=== PATIENT | female | born 1985 | race Caucasian/White ===

== ENCOUNTER 2022-03-04 09:48 | Day surgery (SDC) | payer OTHER ==
[2022-03-04 09:36] VITALS: BMI 36.7
[2022-03-04] MEDS ORDERED: Lidocaine 1% MPF 2 ML VIAL ONE (10:06)
[2022-03-04] MEDS ORDERED: CeleCOXIB 100 MG CAP ONE (10:07)
[2022-03-04] MEDS ORDERED: Fentanyl 100 MCG/2 ML VIAL ONE (12:23)
[2022-03-04] MEDS ORDERED: PROPOFOL 20 ML ONE (12:23)
[2022-03-04] MEDS ORDERED: Dexamethasone 20 MG/5 ML VIAL ONE (12:24)
[2022-03-04] MEDS ORDERED: Midazolam HCl 2 mg/2 ml Vial ONE (12:24)
[2022-03-04] MEDS ORDERED: Ondansetron PF 4 MG/2 ML Vial ONE (12:24)
[2022-03-04] MEDS ORDERED: Lidocaine 1% PF 5 ML VIAL ONE (12:24)
[2022-03-04] MEDS ORDERED: Ketorolac Tromethamine 30 MG/ML VIAL ONE (12:24)
[2022-03-04] MEDS ORDERED: Glycopyrrolate 0.2 MG/ML 5 ML SYRINGE ONE (12:25)
[2022-03-04] MEDS ORDERED: CEFAZOLIN 2 GM VIAL ONE (12:48)
== END 2022-03-04 14:20 | disposition home or self-care (01) ==
LOC: CSHSDC 09:48
PROVIDERS: ATTEND Student in an Organized Health Care Education/Training Program
PROC: 0UDB8ZZ Extraction of Endometrium, Via Natural or Artificial Opening Endoscopic (ICD-10-PCS; principal; 2022-03-04)
PROC: 0U5B8ZZ Destruction of Endometrium, Via Natural or Artificial Opening Endoscopic (ICD-10-PCS; principal; 2022-03-04)
DX: N92.0 Excessive and frequent menstruation with regular cycle (principal); D64.9 Anemia, unspecified; E16.2 Hypoglycemia, unspecified; G43.909 Migraine, unspecified, not intractable, without status migrainosus; J45.909 Unspecified asthma, uncomplicated; Z20.822 Contact with and (suspected) exposure to COVID-19; Z79.899 Other long term (current) drug therapy; Z88.2 Allergy status to sulfonamides; Z98.51 Tubal ligation status; Z98.890 Other specified postprocedural states
CPT/HCPCS: 86850; 86900; 86901; 88305; J0690; J1100; J1885; J2250; J2405; J2704; J3010